=== PATIENT | female | born 1990 | race Caucasian/White ===

== ENCOUNTER 2024-05-17 06:03 | Outpatient (CLI) | payer BC | END 2024-05-17 06:04 | disposition critical access hospital (66) | LOC: EMS 06:03 | DX: O73.0 Retained placenta without hemorrhage (principal) | CPT/HCPCS: A0425; A0429 ==

== ENCOUNTER 2024-05-17 06:35 | Inpatient (IN) | payer BC ==
[2024-05-17] MEDS ORDERED: miSOPROStoL 200 MCG TABLET PR PRN (06:38)
[2024-05-17] MEDS ORDERED: fentaNYL 100 MCG/2 ML VIAL IVP PRN ×2 (06:38→09:46)
[2024-05-17] MEDS ORDERED: METHYLERGONOVINE 0.2 MG/ML VIAL IM PRN (06:38)
[2024-05-17] MEDS ORDERED: LABETALOL 20 MG/4 ML SYRINGE IVP PRN ×5 (06:38→10:47)
[2024-05-17] MEDS ORDERED: TERBUTALINE 1 MG/ML VIAL SUBQ PRN (06:38)
[2024-05-17] MEDS ORDERED: NIFEdipine 10 MG CAPSULE PO PRN ×2 (06:38→10:47)
[2024-05-17] MEDS ORDERED: OXYTOCIN/SODIUM CHLORIDE 500 ML IV PRN ×2 (06:38→10:47)
[2024-05-17] MEDS ORDERED: miSOPROStoL 200 MCG TABLET BC PRN (06:38)
[2024-05-17] MEDS ORDERED: lidocaine 1% 20 ML MDV ID PRN (06:38)
[2024-05-17] MEDS ORDERED: TRANEXAMIC ACID IN NACL 1,000 MG/100 ML BAG IV PRN (06:38)
[2024-05-17] MEDS ORDERED: CARBOPROST TROMETHAMINE 250 MCG/ML VIAL IM PRN (06:38)
[2024-05-17] MEDS ORDERED: SODIUM CHLORIDE FLUSH 0.9% 10 ML SYRINGE IVP PRN (06:38)
[2024-05-17] MEDS ORDERED: hydrALAZINE INJ 20 MG/ML VIAL IVP PRN ×2 (06:38)
[2024-05-17] MEDS ORDERED: OXYTOCIN 10 UNIT/ML VIAL IM PRN (06:38)
[2024-05-17 06:58] LABS: BASOPHILS % (AUTO) 0.2 %; HCT - HEMATOCRIT 39.8 % (37.0-47.0); HGB - HEMOGLOBIN 13.3 g/dL (12.0-16.0); LYMPHOCYTES # (AUTO) 0.8 10^3/uL (1.5-3.5); LYMPHOCYTES % (AUTO) 3.6 %; MEAN CORPUSCULAR HEMOGLOBIN 29.6 pg (27.0-31.0); MEAN CORPUSCULAR HGB CONC 33.4 g/dL (32.0-36.0); MEAN CORPUSCULAR VOLUME 88.6 fL (81.0-99.0); MEAN PLATELET VOLUME 10.7 fL (7.9-10.8); MONOCYTES # (AUTO) 1.2 10^3/uL (0.0-1.0); MONOCYTES % (AUTO) 5.4 %; NEUTROPHILS # (AUTO) 19.8 10^3/uL (1.5-6.6); NEUTROPHILS % (AUTO) 90.3 %; PLT - PLATELET COUNT 256 10^3/uL (130-450); RED BLOOD COUNT 4.49 10^6/uL (4.20-5.40); RED CELL DISTRIBUTION WIDTH 12.4 % (12.0-15.0)
[2024-05-17] MEDS: LACTATED RINGERS 1,000 ML IV PRN (06:59)
[2024-05-17] MEDS ORDERED: SODIUM CHLORIDE FLUSH 0.9% 10 ML SYRINGE IVP SCH (07:00)
[2024-05-17 07:05] LABS: SLIDE REVIEW? Indicated
[2024-05-17 07:22] LABS: PLATELET ESTIMATE, MANUAL NORMAL (130-450,000) (NORMAL); PLATELET MORPHOLOGY NORMAL APPEARANCE (NORMAL); RBC MORPHOLOGY (MULTIPLE) NORMAL APPEARANCE (NORMAL)
[2024-05-17] MEDS ORDERED: ePHEDrine 50 MG/ML VIAL IVP ONE (07:23)
[2024-05-17] MEDS ORDERED: PHENYLEPHRINE HCL 0.5 MG/5 ML AMPULE ONE (07:23)
[2024-05-17] MEDS ORDERED: fentaNYL 100 MCG/2 ML VIAL ONE ×2 (07:23→09:16)
[2024-05-17] MEDS ORDERED: LIDOCAINE 2%-EPI 1:100000 20 ML MDV ONE (07:24)
[2024-05-17] MEDS ORDERED: BUPIVACAINE 0.25% PF 10 ML VIAL ONE (07:24)
--- NOTE | 2024-05-17 07:28 | HISTORY & PHYSICAL EXAMINATION ---
Admit History - Visit Reason Visit Reason: Other (Retained placenta) - Smoking Status: Never smoker - Other Maternal History Other Maternal History: Gaetano is a 34 yo who presents after home via SVE at approximately 0430 this AM with retained placenta. She is accompanied by partner and student nurse boatswain's mate. They report uncomplicated SVE with retained placenta. Attempted manual removal without success, report it is retained at the fundus. Estimated EBL to this point 1500cc. Gaetano reports feeling very tired after laboring all night and feeling parched. Denies dizziness, SOB. Reports her first delivery was also home , uncomplicated. Denies any complications this . Med Hx: denies Surg Hx: denies Social Hx: not reviewed Fam Hx: not reviewed Allergies: denies Meds: PNV PE: Gen: NAD Abd: soft, non tender Pelvic: currently without ongoing bleeding, cord visible at introitus A/P: 34 yo with: - Retained placenta s/p at home - PPH, ~ 1500cc - We reviewed options for removal. Discussed trial of removal in room without anesthesia, IV fentanyl if needed. Patient states that after many attempts of manual removal at home without anesthesia, she prefers to have anesthesia. Discussed that we could try removing first, but possible we may need to do bedside curettage if retained membranes/placenta. She prefers to go ahead and have epidural/spinal now in case additional procedure required. We discussed that we may need to move to OR in the case of heavy bleeding or persistent retained placenta/placental fragments and that dilation and curettage may be nec essary. We have reviewed risks of bleeding possibly requiring blood transfusion, infection (plan to give 2g Ancef now), uterine perforation and injury to surrounding structures in the event that instrumentation is required, hysterectomy, . She does agree to proceed and consent was signed. - Will give 2g ancef - IV fluid bolus 1L - T&C x 2 - Discussed will give pitocin after removal of placenta and other uterotonics if indicated Laney Freed MD - [facility] Current EDU 05/21/24 Gestation 39 Weeks and 3 Days 2 Vital Signs Temperature 98.1 F 05/17/24 06:40 Heart Rate 102 H 05/17/24 06:40 Respiratory Rate 18 05/17/24 06:40 Blood Pressure 128/80 05/17/24 06:40 Temperature 98.8 F 05/17/24 07:01 Heart Rate 106 H 05/17/24 07:01 Respiratory Rate 19 05/17/24 07:01 Blood Pressure 128/80 05/17/24 07:01 O2 Saturation If not protocol: Oxygen Flow, liters/minute Meds/Allgy - Allergies Allergies/Adverse Reactions: Allergies Allergy/AdvReac Type Severity Reaction Status Date / Time No Known Drug Allergies Allergy Verified 05/17/24 06:55 Physical - Abdominal Exam Vital Signs: Temp Pulse Resp BP Pulse Ox O2 Flow Rate 98.8 F 106 H 19 128/80 05/17/24 07:01 05/17/24 07:01 05/17/24 07:01 05/17/24 07:01 Plan for Labor - Plan For Labor I expect patient to be DC'd or transferred within 96 hours.: Yes
[2024-05-17] MEDS: ceFAZolin (2G) 2 GM in SODIUM CHLORIDE 0.9% 100ML 100 ML IV STA (08:34)
[2024-05-17] MEDS ORDERED: LIDOCAINE-MPF 2% 5 ML VIAL ONE (08:40)
[2024-05-17] MEDS ORDERED: LIDOCAINE-PF 2% 10 ML AMP SUBQ ONE (08:42)
--- NOTE | 2024-05-17 08:57 | ANESTHESIA ---
Pre-Anesthesia VS, & Labs - Diagnosis retained placenta - Procedure epidural for retained placenta Vital Signs: Temp Pulse Resp BP Pulse Ox O2 Flow Rate 37.1 C 106 H 19 128/80 05/17/24 07:01 05/17/24 07:01 05/17/24 07:01 05/17/24 07:01 Height: 5 ft 5 in - NPO Other (5am, bite of granola bar) - Is Patient ?: No - Lab Results Current Lab Results: Laboratory Tests 05/17/24 07:06: Blood Type Recheck O POSITIVE 05/17/24 06:40: WBC 22.0 H, RBC 4.49, Hgb 13.3, Hct 39.8, MCV 88.6, MCH 29.6, MCHC 33.4, RDW 12.4, Plt Count 256, MPV 10.7, Neut # (Auto) 19.8 H, Lymph # (Auto) 0.8 L, Phillips # (Auto) 1.2 H, Eos # (Auto) 0.0, Baso # (Auto) 0.0, Absolute Nucleated RBC 0.00, Nucleated RBC % 0.0, Manual Slide Review Indicated, Platelet Estimate NORMAL (130-450,000), Platelet Morphology NORMAL APPEARANCE, RBC Morph Micro Appear NORMAL APPEARANCE 05/17/24 06:40: Blood Type O POSITIVE, Antibody Screen NEGATIVE, Crossmatch IS Only See Detail Fish Bones: 05/17/24 06:40 Home Medications and Allergies Active Medications Carboprost Tromethamine (Carboprost Tromethamine 250 Mcg/Ml Vial) 250 mcg IM .ONCE PRN PRN Reason: Hemorrhage Fentanyl (Fentanyl 100 Mcg/2 Ml Vial) 50 mcg IVP Q1H PRN PRN Reason: Severe Pain (score 7-10) Hydralazine HCl (Hydralazine Inj 20 Mg/Ml Vial) 5 - 10 mg IVP Q20M PRN; Protocol PRN Reason: SBP> or= 160 OR DBP> or= 110 Hydralazine HCl (Hydralazine Inj 20 Mg/Ml Vial) 10 mg IVP .ONCE PRN; Protocol PRN Reason: SBP> or= 160 OR DBP> or= 110 Lactated Ringer's (Lr) 500 mls @ 999 mls/hr IV PRN PRN PRN Reason: Blood Pressure Last Admin: 06/17/24 08:38 Dose: 999 mls/hr Oxytocin/Sodium Chloride (Pitocin/Sodium Chloride) 500 mls @ 999 mls/hr IV PRN PRN; Protocol PRN Reason: POST- HEMORR PREVENTION Tranexamic Acid (Tranexamic 1,000 Mg/100ml-Nacl) 1,000 mg in 100 mls @ 600 mls/hr IV Q30M PRN PRN Reason: EBL >1200mL and within 3hr Labetalol HCl (Labetalol 20 Mg/4 Ml Syringe) 20 - 80 mg IVP Q10M PRN; Protocol PRN Reason: SBP> or= 160 OR DBP> or= 110 Labetalol HCl (Labetalol 20 Mg/4 Ml Syringe) 20 mg IVP .ONCE PRN; Protocol PRN Reason: SBP> or= 160 OR DBP> or= 110 Labetalol HCl (Labetalol 20 Mg/4 Ml Syringe) 20 - 40 mg IVP Q10M PRN; Protocol PRN Reason: SBP> or= 160 OR DBP> or= 110 Lidocaine HCl (Lidocaine 1% 20 Ml Mdv) 20 ml ID .ONCE PRN PRN Reason: PERINEAL REPAIR Stop: 05/20/24 06:40 Methylergonovine Maleate (Methylergonovine 0.2 Mg/Ml Vial) 0.2 mg IM .ONCE PRN PRN Reason: Hemorrhage Misoprostol (Misoprostol 200 Mcg Tablet) 600 mcg BC .ONCE PRN PRN Reason: Hemorrhage Misoprostol (Misoprostol 200 Mcg Tablet) 800 mcg OH .ONCE PRN PRN Reason: Hemorrhage Nifedipine (Nifedipine 10 Mg Capsule) 10 - 20 mg PO Q20M PRN; Protocol PRN Reason: SBP> or= 160 OR DBP> or= 110 Oxytocin (Oxytocin 10 Unit/Ml Vial) 10 unit IM .ONCE PRN PRN Reason: Step One if no IV access. Sodium Chloride (Sodium Chloride Flush 0.9% 10 Ml Syringe) 10 ml IVP PRN PRN PRN Reason: NEEDED PER PROVIDER ORDERS Sodium Chloride (Sodium Chloride Flush 0.9% 10 Ml Syringe) 10 ml IVP Q8H PRANAV Allergies/Adverse Reactions: Allergies Allergy/AdvReac Type Severity Reaction Status Date / Time No Known Drug Allergies Allergy Verified 05/17/24 06:55 Anes History & Medical History - Anesthetic History Anesthesia Complications: reports: No previous complications - Medical History Smoking Status: Never smoker Exam General: Alert, Oriented x3 Dental: WNL Mouth Opening: Greater than 4 Fingerbreadths Neck Mobility: Normal Mallampati classification: I Thyromental Distance: greater than 6 cm Respiratory: Lungs clear Cardiovascular: Regular rate Plan Anesthesia Type: Epidural Consent for Procedure(s) Verified and Reviewed: Yes Code Status: Attempt Resuscitation ASA classification: 2-Mild systemic disease Is this case an emergency?: Yes
[2024-05-17] MEDS ORDERED: KETAMINE 200 MG/20 ML VIAL ONE (09:16)
[2024-05-17] MEDS ORDERED: LIDOCAINE 1%-EPI 1:100000 20 ML MDV ONE (09:17)
[2024-05-17] MEDS ORDERED: HYDROmorphone 0.5 MG/0.5 ML SYRINGE IVP PRN (09:46)
[2024-05-17] MEDS ORDERED: NALOXONE 0.4 MG/ML VIAL IVP PRN ×2 (09:46→10:47)
[2024-05-17] MEDS ORDERED: ONDANSETRON 4 MG/2 ML VIAL IVP PRN ×2 (09:46→10:47)
[2024-05-17] MEDS ORDERED: MORPHINE 2 MG/ML CARPUJECT IVP PRN (09:46)
[2024-05-17] MEDS ORDERED: ePHEDrine 50 MG/ML VIAL IVP PRN (09:46)
[2024-05-17] MEDS ORDERED: METOCLOPRAMIDE 10 MG/2 ML VIAL IVP PRN ×2 (09:46→10:47)
[2024-05-17] MEDS ORDERED: ATROPINE ABBOJECT 1 MG/10 ML SYRINGE IVP PRN (09:46)
[2024-05-17] MEDS ORDERED: PROPOFOL 200 MG/20 ML VIAL IVP ONE (09:52)
[2024-05-17] MEDS ORDERED: MORPHINE PF 5 MG/10 ML VIAL ONE (09:52)
[2024-05-17] MEDS ORDERED: SUCCINYLCHOLINE 200 MG/10 ML VIAL ONE (09:52)
[2024-05-17] MEDS ORDERED: LACTATED RINGERS 1,000 ML IV SCH ×2 (10:00→11:00)
[2024-05-17] MEDS: LACTATED RINGERS 1,000 ML IV ONE (10:16)
[2024-05-17] MEDS ORDERED: oxyCODONE 5 MG TABLET PO PRN (10:47)
--- NOTE | 2024-05-17 10:58 | OPERATIVE REPORT ---
Operative Report - General Admit Date: 05/17/24 Procedure Date: 05/17/24 Planned Procedure: manual removal of placenta. D&C if needed. Pre-Op Diagnosis: retained placenta, s/p vaginal delivery at home Procedure Performed: manual removal of placenta ultrasound of uterus. gentle curettage of uterus Post Op Diagnosis: placenta removed - Procedure Note Primary Surgeon: Kimberlee Bain MD Secondary Surgeon: YAMILE Sheikh Anesthesia Provider: Jennifer Barnett CRNA Anesthesia Technique: Epidural, General ET tube Pathology: placenta IV Fluids (mL): 1,000 Estimated Blood Loss (mL): 300 Urine Output (mL): 200 Indications: Patient had planned vaginal delivery at home about 0430. Presented to [facility] about 0630 with retained placenta. CNM had tried to remove at home without success. EBL at home about 1500 cc. brought patient to hospital. Patient seen by my partner Dr. Freed, desired epidural prior to attempt at removal. Not bleeding so this was felt safe. Epidural placed and patient then was put in stirrups in the room. We emptied her bladder and she was very painful. Decided she just wanted to go to sleep for further procedure. Plan of care in OR discussed. Talked about going to sleep, manual removal of placenta, curettage if needed, and hysterectomy of not successful. Patient agreed. She had been given 2 gm of Ancef. In OR. General anethesia was induced. legs in Harjit stirrups. External prep done by RN. Drapes placed. Internal prep done with betadine. Bladder emptied. Placenta was at os but also up inside. The placenta was removed digitally, sweeping up behind it at the fundus. [place] that it was all removed and this was confirmed on exam. Ultrasound done with a sterile probe on the abdomen. Uterus appeared empty, but a bit hard to see and feel fundus so banjo curette placed under direct visualization with ultrasound. Minimal bleeding, maybe 300 cc total. Probably less. Placenta was dry and intact but the cotyledons were somewhat detached from each other. Uterus contracted well. Patient was awakened and brought to PACU stable.
--- NOTE | 2024-05-17 11:20 | PHARMACY PROGRESS NOTE ---
- Best Possible Medication History Admit Date and Time: 05/17/24 0640 Processed by: Pharmacy Medications reviewed in ED?: No Medication History completed: Yes Patient Interview: Pt unable to participate Secondary Source(s): Physician records As the person ultimately responsible for medication therapy, providers are able to order a medication from an existing home medication list in [facility] via the "Reconcile Routine" prior to Confirmation of that medication by administrative support clerk. Such practice is discouraged except when the physician, in their clinical judgment, deems that a medical need exists for a medication without regard to previous use.
--- NOTE | 2024-05-17 11:49 | ANESTHESIA POST OP EVALUATION ---
Anesthesia Post Eval - Post Anesthesia Eval Vitals: Last Vital Signs Temp 36.8 C 05/17/24 10:40 Pulse 68 05/17/24 10:40 Resp 18 05/17/24 10:40 BP 119/84 H 05/17/24 10:40 Pulse Ox 99 05/17/24 10:40 O2 Flow Rate CV Function Including HR & BP: Stable Pain Control: Satisfactory Nausea & Vomiting: Negative Mental Status: Baseline Respiratory Status: Airway Patent Hydration Status: Satisfactory Anesthesia Complications: None
[2024-05-17 12:16] LABS: HCT - HEMATOCRIT 35.7 % (37.0-47.0); HGB - HEMOGLOBIN 11.9 g/dL (12.0-16.0); MEAN CORPUSCULAR HEMOGLOBIN 29.9 pg (27.0-31.0); MEAN CORPUSCULAR HGB CONC 33.3 g/dL (32.0-36.0); MEAN CORPUSCULAR VOLUME 89.7 fL (81.0-99.0); MEAN PLATELET VOLUME 10.8 fL (7.9-10.8); RED BLOOD COUNT 3.98 10^6/uL (4.20-5.40); RED CELL DISTRIBUTION WIDTH 12.4 % (12.0-15.0); WHITE BLOOD COUNT 21.4 x10^3/uL (4.8-10.8)
[2024-05-17 15:13] VITALS: BP 106/68; O2SAT 97
[2024-05-17] MEDS ORDERED: ACETAMINOPHEN 500 MG TABLET PO SCH (17:00)
--- NOTE | 2024-05-17 21:56 | DISCHARGE SUMMARY ---
"Discharge Summary Admit Date: 05/17/24 Discharge Date: 05/17/24 Discharging Provider: Kimberlee Bain MD Code Status: Attempt Resuscitation Condition at Discharge: Good - DIAGNOSES Admission Diagnoses: retained placenta after vaginal delivery Discharge Diagnoses with Status of Each Condition: placenta removed. recovering well. - HPI History of Present Illness: Patient had her baby at home at about 0430 this am. by 0630 placenta was not able to be delivered and her CNM brought her to the hospital. and delivery were otherwise uncomplicated. Baby weighed over 8 pounds and she had no perineal lacerations. CNM said that Gaetano bled about 1500 cc at home. Upon arrival she was barely bleeding. - CONSULTS | PROCEDURES Procedures: Epidural anesthesia placement. Manual removal of placenta and gentle sharp curettage with ultrasound guidance under general anesthesia. - HOSPITAL COURSE Hospital Course: Patient was admitted. She received epidural in hopes that woudl allow placental removed manually in the room. We placed a catheter to empty her bladder and that was very painful. With that, the decision was made to go to the OR and remove the placenta under general anesthesia. This was done wihtout complication. Placenta came out easily at that point. Ultrasound was used to assess for remaining tissue and it looked good. Gentle sharp curettage with Banjo curette was done. bladder was emptied and she was brought to recovery room and then back to her room at [facility]. Over the next 4 hours, she was able to eat, drink and walk around without dizziness. She was discharged home at dinner time. - ALLERGIES Allergies/Adverse Reactions: Allergies Allergy/AdvReac Type Severity Reaction Status Date / Time No Known Drug Allergies Allergy Verified 05/17/24 06:55 - MEDICATIONS Home Medications: Ambulatory Orders Medication Instructions Recorded Confirmed Pnv No.95/Ferrous Fum/Folic AC 1 tab PO DAILY 05/17/24 05/17/24 [ Tablet] - PHYSICAL EXAM AT DISCHARGE General Appearance: positive: No acute distress Respiratory: positive: No respiratory distress Cardiovascular: positive: Regular rate & rhythm Abdomen: positive: Non-tender Extremities: positive: Non-tender, No pedal edema Physical Exam Other/Comments: minimal vaginal bleeding. - LABS Result Diagrams: 05/17/24 12:10 - SEPSIS Current Stage of Sepsis: Ruled out Possible source of Sepsis: Genitourinary (from retained placenta. ) Sepsis Associated Organ Dysfunction: no organ dysfunction and she did very well with hydration. Vital signs were normal by time of discharge. Ancef 32 gm was given. Sepsis Criteria: Recorded Heart Rate greater than 90 bpm, WBC count greater than 12,000 or less than 4000 - FOLLOW UP Follow Up: with us if desired. She declined an appt for now. will be seeing her CNM tomorrow. - TIME SPENT Time Spent in Discharge (Minutes): 20"
[2024-05-18] MEDS ORDERED: IBUPROFEN 600 MG TABLET PO SCH (11:00)
== END 2024-05-17 16:59 | disposition home or self-care (01) | DRG 769 ==
LOC: WFO 06:35 → FBP 06:37 → WFO 06:39 → FBP 06:40
PROVIDERS: ADMIT Obstetrics & Gynecology; ATTEND Obstetrics & Gynecology
PROC: 10D17Z9 Manual Extraction of Products of Conception, Retained, Via Natural or Artificial Opening (ICD-10-PCS; principal; 2024-05-17 09:15)
DX: O73.0 Retained placenta without hemorrhage (principal)
CPT/HCPCS: 36415; 85025; 85027; 86850; 86900; 86901; 86920; J0330; J2274; J2372; J3490; J7120; 84443